=== PATIENT | female | born 1980 | race Caucasian/White ===

== ENCOUNTER 2022-07-03 11:34 | Observation (INO) | payer BC ==
[2022-07-03 12:21] LABS: Absolute Lymphocytes (CBC) 2.2 K/uL (0.7-4.9); Hematocrit 41.2 % (36.0-45.0); Lymphocytes % 20.8 % (15.3-44.8); MCV 95.2 fL (80-100); MPV 8.6 fL (7.6-11.3); RBC Red Blood Cell Count 4.33 M/uL (3.86-4.86)
[2022-07-03 12:21] LABS: Urine Blood Negative (Negative); Urine Glucose Negative (Negative); Urine Protein Negative (Negative); Urine Specific Gravity <=1.005 (1.005-1.030); Urine pH 6.5 (5.0-7.0)
[2022-07-03 13:03] LABS: Albumin 3.6 g/dL (3.4-5.0); Bilirubin Total 0.8 mg/dL (0.2-1.0); Potassium 3.4 mmol/L (3.5-5.1)
[2022-07-03 14:03] LABS: Blood Morphology Comment NOT SEEN (NOT SEEN); Platelet Estimate ADEQ; White Blood Cell Scan OK (OK)
--- NOTE | 2022-07-03 14:40 | RAD REPORT ---
EXAM DESCRIPTION: CT - Abdomen Pelvis W Contrast - 07/03/2022 1:29 pm CLINICAL HISTORY: ABD PAIN COMPARISON: No comparisons TECHNIQUE: Thin cut axial CT imaging of the abdomen and pelvis was performed following intravenous a dministration of 95 Isovue 300. Multiplanar reformats were generated and reviewed. All CT scans are performed using dose optimization technique as appropriate and may include automated exposure control or mA/KV adjustment according to patient size. FINDINGS: No suspicious findings in the lung bases. The liver, spleen, and pancreas show no suspicious findings. A small splenule is incidentally noted. Gallbladder and biliary tree are also without suspicious finding. Symmetric renal function is seen with no hydronephrosis or suspicious renal mass. No dilated bowel loops. Wall thickening and adjacent mild fat stranding along the cecal bulb. The tip of the appendix is normal in appearance (axial image 54/89), however the inflammatory changes may in volve the retrocecal base of the appendix. No appreciable fluid collections. No free air, free fluid or inflammatory stranding. No intra-abdominal mass or bulky lymphadenopathy. The urinary bladder is s uboptimally distended, which limits evaluation, without significant finding. Small midline supraumbilical ventral hernia containing fat, measuring 3.6 centimeter in greatest axia l dimension. No suspicious bony findings. IMPRESSION: Inflammatory changes and wall thickening along the cecal bulb, could reflect colitis. Th e inflammation may be involving the base of the appendix, although paucity of fat in the region limit s evaluation. The tip of the appendix appears to be within normal limits. Small midline supraumbilical ventral fat containing hernia The findings were communicated to Brian Shah on 07/03/2022 at 14:34 hours.
--- NOTE | 2022-07-03 15:06 | EDPHYS ---
Physician Documentation [facility] Name: Monserrat Lewis Age: 41 yrs Sex: Female : 1980 Arrival Date: 07/03/2022 Time: 11:36 Bed 20 Private MD: ED Physician Jesus Hawkins HPI: 07/03 11:49 This 41 yrs old Female presents to ER via Unassigned with complaints of Abdominal Pain ms3 - RLQ. 11:49 41-year-old female with past medical history of hypothyroidism presents for right lower ms3 quadrant abdominal pain that began yesterday afternoon around lunch. Patient states pain is currently 2/10 and located in her right lower quadrant. Patient does note a decreased appetite. Patient took simethicone without relief. Patient states her last menstrual period was June 26, 2022. Patient is status post bilateral tubal ligation.. 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 - Social history:: Smoking status: Patient denies any tobacco usage or history of. ROS: 11:50 Constitutional: Negative for fever, and chills. ENT: Negative for injury, pain, and ms3 discharge, Neck: Negative for injury, pain, and swelling, Cardiovascular: Negative for chest pain, and palpitations. Respiratory: Negative for shortness of breath, cough, wheezing, and pleuritic chest pain. 11:50 Skin: Negative for injury, rash, and discoloration. 11:50 Abdomen/GI: Positive for abdominal pain. 11:50 All other systems are negative. Exam: 11:50 Constitutional: This is a well developed, well nourished patient who is awake, alert, ms3 and in no acute distress. Head/Face: Normocephalic, atraumatic. Eyes: Pupils equal round and reactive to light, extra-ocular motions intact. Lids and lashes normal. Conjunctiva and sclera are non-icteric and not injected. Periorbital areas with no swelling, redness, or edema. Neck: Trachea midline, no cervical lymphadenopathy. Supple, full range of motion without nuchal rigidity, or vertebral point tenderness. No Meningismus. Chest/axilla: Normal chest wall appearance and motion. Nontender with no deformity. Cardiovascular: Regular rate and rhythm with a normal S1 and S2. No gallops, murmurs, or rubs. Normal PMI, no JVD. No pulse deficits. Respiratory: Lungs have equal breath sounds bilaterally, clear to auscultation and percussion. No rales, rhonchi or wheezes noted. No increased work of breathing, no retractions or nasal flaring. 11:50 Abdomen/GI: Inspection: abdomen appears normal, Bowel sounds: normal, Palpation: moderate abdominal tenderness, in the right lower quadrant. Vital Signs: 11:49 BP 131 / 86; Pulse 93; Resp 16; Temp 98.4; Pulse Ox 98% on R/A; Weight 71.21 kg; Height jh5 5 ft. 7 in. (170.18 cm); Pain 3/10; 14:11 BP 144 / 96; Pulse 88; Resp 16; Pulse Ox 100% on R/A; sg5 15:56 BP 154 / 94; Pulse 93; Resp 16; Temp 98.4(O); Pulse Ox 100% on R/A; db 16:00 BP 151 / 96; Pulse 91; Resp 16; Pulse Ox 100% ; db 18:00 BP 149 / 95; Pulse 89; Resp 18; Pulse Ox 100% on R/A; db 11:49 Body Mass Index 24.59 (71.21 kg, 170.18 cm) jh5 MDM: 11:47 Patient medically screened. ms3 11:50 Differential diagnosis: appendicitis, non-specific abd pain, Ectopic vs ms3 ovarian cyst. 16:30 Data reviewed: vital signs, nurses notes, lab test result(s), radiologic studies, CT ms3 scan. Consideration of Admission/Observation Patient was admitted/placed on observation. Management of patient was discussed with the following: Hospitalist: Dr Corbett. Display Card Writer: Dr Durán. I considered the following discharge prescriptions or medication management in the emergency department Medications were administered in the Emergency Department. See MAR. Independent interpretation of the following test(s) in the Emergency Department. Discussion of test interpretation with radiology: I had a discussion with radiology regarding a test interpretation. CT scan discussed. Cecal inflammation, possible appendicitis. Counseling: I had a detailed discussion with the patient and/or guardian regarding: the historical points, exam findings, and any diagnostic results supporting the discharge/admit diagnosis, lab results, radiology results, the need for further work-up and treatment in the hospital. ED course: Discussed with patient need for observation. She understands agrees to plan. All questions were answered.. 07/03 11:48 Order name: CBC with Diff md3 07/03 11:48 Order name: CMP md3 07/03 11:48 Order name: Lipase md3 07/03 12:18 Order name: CBC with Automated Diff; Complete Time: 14:14 [facility] 07/03 12:18 Order name: Comprehensive Metabolic Panel; Complete Time: 13:12 [facility] 07/03 12:18 Order name: Lipase; Complete Time: 13:12 [facility] 07/03 12:21 Order name: Urine Dipstick-Ancillary; Complete Time: 12:32 [facility] 07/03 14:04 Order name: CBC Smear Scan; Complete Time: 14:14 [facility] 07/03 15:26 Order name: SARS RAPID; Complete Time: 16:29 07/03 18:42 Order name: Magnesium 07/03 18:42 Order name: Phosphorus [facility] 07/03 11:48 Order name: CT Abd/Pelvis - IV Contrast Only md3 07/03 11:48 Order name: IV Saline Lock; Complete Time: 12:22 md3 07/03 11:48 Order name: Labs collected and sent; Complete Time: 12:22 md3 07/03 11:48 Order name: Urine Test (obtain specimen); Complete Time: 12:22 [facility] 07/03 12:18 Order name: Abdomen ; Complete Time: 14:58 [facility] 07/03 12:27 Order name: Labs - recollect needed; Complete Time: 12:32 07/03 18:42 Order name: Basic Metabolic Panel [facility] 07/03 18:42 Order name: Basic Metabolic Panel [facility] 07/03 18:49 Order name: NPO [facility] Administered Medications: 15:40 Drug: Flagyl (metroNIDAZOLE) 500 mg Volume: 100 ml; Route: IVPB; Rate: 200 ml/hr; db Infused Over: 30 mins; Site: left antecubital; 16:10 Follow up: Response: No adverse reaction; IV Status: Completed infusion; IV Intake: db 100ml 15:40 Drug: NS 0.9% 1000 ml Route: IV; Rate: 125 ml/hr; Site: left antecubital; db 18:08 Follow up: Response: No adverse reaction; IV Status: Infusion continued upon admission db 16:10 Drug: cefOXitin 1 grams Route: IVPB; Infused Over: 30 mins; Site: left antecubital; db 17:00 Follow up: Response: No adverse reaction; IV Status: Completed infusion; IV Intake: 50mldb Disposition Summary: 07/03/22 15:05 Hospitalization Ordered Hospitalization Status: Observation ms3 Provider: Riccardo Corbett ms3 Location: Telemetry/MedSurg (observation) ms3 Condition: Stable ms3 Problem: new ms3 Symptoms: are unchanged ms3 Bed/Room Type: Standard ms3 Room Assignment: 206(07/03/22 17:28) dw Diagnosis - Lower abdominal pain, unspecified ms3 - Colitis ms3 Forms: - Medication Reconciliation Form ms3 - SBAR form ms3 Signatures: Dispatcher [employer] Concepcion Hernandez RN Margaret Roberto RN Jesus Ramos DO DO ms3 Laney Monk RN RN jh5 Tanya Zambrano RN RN db Corrections: (The following items were deleted from the chart) 17:28 15:05 ms3 dw 18:48 18:42 Clear Liquid ordered. EDMS EDMS 18:48 18:42 Creatine Phosphokinase ordered. EDMS EDMS 18:49 18:42 T4 Free ordered. EDMS EDMS 18:49 18:42 Thyroid Stimulating Hormone ordered. EDMS EDMS 18:49 18:42 Urinalysis ordered. EDMS EDMS 18:49 18:42 CBC with Automated Diff ordered. EDMS EDMS 18:49 18:42 CBC with Automated Diff ordered. EDMS EDMS
--- NOTE | 2022-07-03 15:06 | ER ---
Nurse's Notes [facility] Name: Monserrat Lewis Age: 41 yrs Sex: Female : 1980 Arrival Date: 07/03/2022 Time: 11:36 Bed 20 Private MD: Diagnosis: Lower abdominal pain, unspecified;Colitis Presentation: 07/03 11:49 Chief complaint: Patient states: Patient reports right lower quadrant abdominal pain [facility] 310 with body aches and chills. Coronavirus screen: Vaccine status: Patient reports receiving the 2nd dose of the covid vaccine. Ebola Screen: No symptoms or risks identified at this time. Initial Sepsis Screen: Does the patient meet any 2 criteria? No. Patient's initial sepsis screen is negative. Does the patient have a suspected source of infection? No. Patient's initial sepsis screen is negative. Risk Assessment: Do you want to hurt yourself or someone else? Patient reports no desire to harm self or others. Onset of symptoms was July 03, 2022. 11:49 Method Of Arrival: Ambulatory [facility] 11:49 Acuity: GM 3 [facility] Triage Assessment: 11:51 General: Appears comfortable, Behavior is calm, cooperative, appropriate for age. Pain: [facility] Complains of pain in abdomen Pain currently is 3 out of 10 on a pain scale. Cardiovascular: No deficits noted. Respiratory: No deficits noted. GI: Abdomen is flat, non-distended, Reports lower abdominal pain. 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 - Social history:: Smoking status: Patient denies any tobacco usage or history of. Screenin:12 [facility] ED Fall Risk Assessment (Adult) History of falling in the last 3 months, sg5 including since admission No falls in past 3 months (0 pts). Abuse screen: Denies threats or abuse. Nutritional screening: No deficits noted. Tuberculosis screening: No symptoms or risk factors identified. Assessment: 12:00 General: Appears comfortable, Behavior is calm, cooperative, appropriate for age. Pain: sg5 Complains of pain in abdomen. Cardiovascular: No deficits noted. Respiratory: No deficits noted. GI: Bowel sounds present X 4 quads. Abd is soft X 4 quads Abd is non tender. 15:55 Reassessment: Patient appears in no apparent distress at this time. Patient and/or db family updated on plan of care and expected duration. Pain level reassessed. Patient is alert, oriented x 3, equal unlabored respirations, skin warm/dry/pink. patient roomed in 20 from the hallway. Patient complaining of abdominal pain since last night and headache. Neuro: Level of Consciousness is awake, alert, obeys commands, Oriented to person, place, time, situation, Reports headache. 16:38 Reassessment: Patient appears in no apparent distress at this time. Patient and/or db family updated on plan of care and expected duration. Pain level reassessed. Patient is alert, oriented x 3, equal unlabored respirations, skin warm/dry/pink. 18:06 Reassessment: CALLED FLOOR TO GIVE REPORT. NURSE STATES WILL CALL BACK. db 18:07 Reassessment: Patient appears in no apparent distress at this time. Patient and/or db family updated on plan of care and expected duration. Pain level reassessed. Patient is alert, oriented x 3, equal unlabored respirations, skin warm/dry/pink. Vital Signs: 11:49 BP 131 / 86; Pulse 93; Resp 16; Temp 98.4; Pulse Ox 98% on R/A; Weight 71.21 kg; Height jh5 5 ft. 7 in. (170.18 cm); Pain 3/10; 14:11 BP 144 / 96; Pulse 88; Resp 16; Pulse Ox 100% on R/A; sg5 15:56 BP 154 / 94; Pulse 93; Resp 16; Temp 98.4(O); Pulse Ox 100% on R/A; db 16:00 BP 151 / 96; Pulse 91; Resp 16; Pulse Ox 100% ; db 18:00 BP 149 / 95; Pulse 89; Resp 18; Pulse Ox 100% on R/A; db 11:49 Body Mass Index 24.59 (71.21 kg, 170.18 cm) 5 ED Course: 11:36 Patient arrived in ED. am2 11:36 Jesus Hawkins DO is Attending Physician. ms3 11:51 Triage completed. jh5 11:51 Arm band placed on right wrist. jh5 12:22 CBC with Automated Diff Sent. ld1 12:22 Comprehensive Metabolic Panel Sent. ld1 12:22 CBC with Diff Sent. ld1 12:22 CMP Sent. ld1 12:22 Lipase Sent. ld1 12:23 Inserted saline lock: 20 gauge in left antecubital area, using aseptic technique. bc6 13:31 Abdomen In Process Unspecified. EDMS 14:12 Patient has correct armband on for positive identification. Bed in low position. 5 15:04 Riccardo Corbett MD is Hospitalizing Provider. ms3 15:54 Tanya Zambrano RN is Primary Nurse. db 16:38 Pulse ox on. NIBP on. Warm blanket given. db 18:06 No provider procedures requiring assistance completed. Patient admitted, IV remains in db place. 18:23 Report given to VINEET Brown on 2nd floor for room 206. db Administered Medications: 15:40 Drug: Flagyl (metroNIDAZOLE) 500 mg Volume: 100 ml; Route: IVPB; Rate: 200 ml/hr; db Infused Over: 30 mins; Site: left antecubital; 16:10 Follow up: Response: No adverse reaction; IV Status: Completed infusion; IV Intake: db 100ml 15:40 Drug: NS 0.9% 1000 ml Route: IV; Rate: 125 ml/hr; Site: left antecubital; db 18:08 Follow up: Response: No adverse reaction; IV Status: Infusion continued upon admission db 16:10 Drug: cefOXitin 1 grams Route: IVPB; Infused Over: 30 mins; Site: left antecubital; db 17:00 Follow up: Response: No adverse reaction; IV Status: Completed infusion; IV Intake: 50mldb Medication: 18:06 VIS not applicable for this client. db Intake: 16:10 IV: 100ml; Total: 100ml. db 17:00 IV: 50ml; Total: 150ml. db Outcome: 15:05 Decision to Hospitalize by Provider. ms3 18:05 Admitted to Med/surg room 206. db 18:05 Condition: stable 18:05 Instructed on the need for admit. 18:56 Patient left the ED. db Signatures: Dispatcher [employer] EDMargaret Gomez am2 Jesus Hawkins DO DO ms3 Danika Gates, RN RN ld1 Laney Monk RN RN jh5 Tanya Zambrano RN RN db Marie Hernandez 6 Cammy Hennessy RN RN sg5
[2022-07-03] MEDS ORDERED: METRONIDAZOLE 500mg IVPB 500 MG/100 ML BAG IV ONE (15:38)
[2022-07-03] MEDS ORDERED: NA CHLORIDE 0.9% 50 ML ONE (15:38)
[2022-07-03] MEDS ORDERED: CEFOXITIN SODIUM 1 GM/VIAL ONE (15:38)
[2022-07-03] MEDS ORDERED: NA CHLORIDE 0.9% 1,000 ML ONE (15:39)
[2022-07-03 16:10] LABS: SARS-CoV-2 Antigen Rapid Res Negative (Negative)
[2022-07-03] MEDS ORDERED: ACETAMINOPHEN 325 MG TABLET PO PRN (16:58)
[2022-07-03] MEDS ORDERED: POTASSIUM CL SA 10 MEQ TAB PO ONE (16:58)
[2022-07-03] MEDS ORDERED: ONDANSETRON 4 MG/2 ML VIAL IV PRN (17:00)
[2022-07-03] MEDS ORDERED: LABETALOL 20 MG/4ML SYRINGE IV PRN (17:02)
--- NOTE | 2022-07-03 17:03 | P.HP ---
Certification for Inpatient Patient admitted to: Observation With expected LOS: <2 Midnights Patient will require the following post-hospital care: None Practitioner: I am a practitioner with admitting privileges, knowledge of patient current condition, hospital course, and medical plan of care. Services: Services provided to patient in accordance with Admission requirements found in Title 42 Section 412.3 of the Code of Federal Regulations Patient History Date of Service: 07/03/22 Reason for admission: Abdominal pain History of Present Illness: Patient is a 41-year-old with a past medical history significant for hypothyroidism who presents with complaint of right lower quadrant pain onset yesterday. Patient rated pain as 8/10 in severity and described pain as sharp in quality. Patient reported associated signs and symptoms of nausea, diaphoresis, chills, headache, generalized body pains. Patient denies any other signs and symptoms. Symptoms are aggravated or relieved by nothing. Patient decided to present to the hospital due to worsening symptoms. Allergies Sulfa (Sulfonamide Antibiotics) Allergy (Verified 07/03/22 18:26) Hives/Rash - Past Medical/Surgical History -: Hypothyroidism -: Tubal ligation. -: -: Rhinoplasty - Family History Father -: Cancer Mother -: Diabetes - Social History Smoking Status: Current every day smoker Counseled patient to stop smoking for: less than 10 minutes Smoking therapy provided: Yes Patient receptive to therapy: Yes Alcohol use: Yes CD- Drugs: No Caffeine use: Yes Place of Residence: Home Review of Systems General: Chills, Sweats, Other (Generalized body pains. ) Eyes: Unremarkable ENT: Unremarkable Respiratory: Unremarkable Cardiovascular: Unremarkable Gastrointestinal: Nausea Genitourinary: Unremarkable Musculoskeletal: Unremarkable Integumentary: Unremarkable Neurological: Other (SINHA) Lymphatics: Unremarkable Physical Examination - Physical Exam General: Alert, In no apparent distress, Oriented x3, Cooperative HEENT: Atraumatic, PERRLA, Mucous membr. moist/pink, EOMI, Sclerae nonicteric Neck: Supple, 2+ carotid pulse no bruit, No LAD, Without JVD or thyroid abnormality Respiratory: Clear to auscultation bilaterally, Normal air movement Cardiovascular: No edema, Regular rate/rhythm, Normal S1 S2 Capillary refill: <2 Seconds Gastrointestinal: Hypoactive, Tenderness Musculoskeletal: No clubbing, No swelling, No erythema Integumentary: No rashes, No breakdown, No significant lesion Neurological: Normal speech, Normal tone, Normal affect Lymphatics: No axilla or inguinal lymphadenopathy - Studies Laboratory Data (last 24 hrs) 07/03/22 12:30: Sodium 134 L, Potassium 3.4 L, BUN 6 L, Creatinine 0.51 L, Glucose 97, Total Bilirubin 0.8, AST 14 L, ALT 23, Alkaline Phosphatase 83, Lipase 20 07/03/22 12:10: WBC 10.50, Hgb 14.1, Hct 41.2, Plt Count 216 Assessment and Plan - Plan --Colitis. Patient placed on antibiotics. There was initial concern for appendicitis on CT scan. Surgery was consulted. Surgeon believes patient does not have appendicitis and recommended that Gastroenterology be consulted. Patient placed on antibiotics. We will await further recommendation from consultants. --Abdominal pain. We will manage pain on current pain medication regimen. --Hypokalemia. Replete as needed. --Hypothyroidism. Continue home medication. --Nicotine dependence. Patient counseled on tobacco cessation. Refuses nicotine patch. --DVT prophylaxis with Lovenox subQ. Discharge Plan: Home Plan to discharge in: 48 Hours - Advance Directives Does patient have a Living Will: No Does patient have a Durable POA for Healthcare: No - Code Status/Comfort Care Code Status Assessed: Yes Physician Review: Patient Assessed, Agree with Above Assessment and Plan Critical Care: No
[2022-07-03] MEDS ORDERED: MORPHINE 4 MG/ML SYR IV PRN (17:18)
[2022-07-03] MEDS: METRONIDAZOLE 500mg IVPB 500 MG/100 ML BAG IV SCH (17:30)
[2022-07-03] MEDS: ENOXAPARIN 40 MG/0.4 ML SQ SCH (18:00)
[2022-07-03] MEDS ORDERED: MORPHINE 2 MG/ML SYR IV PRN (18:32)
[2022-07-03] MEDS: CIPROFLOXACIN 400mg IV 400 MG/200 ML BAG IV SCH (21:00)
[2022-07-03 21:37] LABS: Magnesium 2.1 mg/dL (1.6-2.4); Phosphorus 3.1 mg/dL (2.5-4.9)
[2022-07-03 22:26] VITALS: BMI 24.7
[2022-07-04] MEDS: METRONIDAZOLE 500mg IVPB 500 MG/100 ML BAG IV SCH ×3 (00:32→17:06)
[2022-07-04] MEDS: Ringers Lactate 1,000 ML IV SCH ×2 (02:24→08:47)
[2022-07-04 03:56] LABS: Potassium 3.2 mmol/L (3.5-5.1)
[2022-07-04] MEDS ORDERED: POTASSIUM CL 40 MEQ in NA CHLORIDE 0.9% 500 ML IV SCH (06:00)
[2022-07-04] MEDS: KCL 20 MEQ/100 mL IVPB 20 MEQ/100 ML BAG IV SCH ×2 (06:19→08:38)
[2022-07-04] MEDS: ENOXAPARIN 40 MG/0.4 ML SQ SCH (08:38)
[2022-07-04] MEDS: CIPROFLOXACIN 400mg IV 400 MG/200 ML BAG IV SCH (08:40)
[2022-07-04 08:50] VITALS: O2SAT 99
--- NOTE | 2022-07-04 11:59 | CON ---
Reason For Consultation: Abdominal pain. History Of Present Illness: The patient is a 41-year-old female, comes in with acute onset of right lower quadrant pain yesterday. She had nausea, diaphoresis, chills, headaches. No diarrhea. No blo od in her stool. No dysuria or hematuria. No sore throat, runny nose, cough. She did have headache s. No chest pain. No fever, but she did have chills. Review of Systems: Otherwise unremarkable. Past Medical History: Hypothyroidism. Past Surgical History: Tubal ligation, , rhinoplasty. Allergies: INCLUDE SULFA. Social History: The patient does smoke and occasionally drinks alcohol. Has been counseled. Family History: Significant for cancer and diabetes. Cancer is unknown type. Physical Examination: Vital Signs: Currently are stable. She is afebrile. General: She is awake, alert, and oriented x3. Head and Neck: No evidence of icterus. Cranial nerves 2 through 12 are grossly within normal limits . No neck masses. No JVD. Throat clear. Neck is supple. Chest: Clear. Heart: S1 and S2. Abdomen: Soft, nondistended. Positive bowel sounds. Positive right lower quadrant tenderness. No rebound, rigidity, or guarding. Extremities: Adequately perfused. Nontender. Neuro: Nonfocal. Laboratory Data: CT of the abdomen and pelvis reviewed. Essentially, it shows inflammatory changes, wall thickening along the cecal bulb, could be colitis. The inflammation may involve base of the ap pendix, although the paucity of fat in this region limits evaluation. Tip of the appendix appears to be within normal limits. A small midline supraumbilical ventral fat containing hernia. Assessment: A 41-year-old female with colitis. Recommendation: Admit, n.p.o., IV fluid, IV antibiotics, GI consultation for interval colonoscopy, s erial abdominal exam. I do not think the patient has acute appendicitis. We would recommend IV anti biotics until the patient's symptoms improved and she can be discharged home on oral antibiotics with followup with GI for colonoscopy. We will start her on sips of clear liquids today and see how she does. There is no need for any surgical intervention at this time. Plan of care discussed in detail with the patient and family. REID/OMER Voice ID: [id number] Report ID: [id number]
[2022-07-04 16:03] VITALS: BP 182/90; TEMP 98.8
--- NOTE | 2022-07-04 17:21 | P.DS ---
Admission Date: 07/03/22 Discharge Date: 07/04/22 Disposition: ROUTINE DISCHARGE Discharge Condition: GOOD Reason for Admission: Abdominal pain Consultations: 1. General Surgery 2. Gastroenterology Hospital Course: DIAGNOSES: # Acute Cecal Colitis # Small Splenic Nodule # Small Supraumbilical Ventral Hernia HOSPITAL COURSE: Ms. Monserrat Lewis is a 41 year old female with a past medical history significant for hypothyroidism who was admitted to the [facility] on 07/03/2022 for abdominal pain. She was admitted to the Medicine service. Upon further evaluation, a CT abdomen/pelvis revealed, "inflammatory changes and wall thickening along the cecal bulb, could reflect colitis. The inflammation may be involving the base of the appendix, although paucity of fat in the region limits evaluation. The tip of the appendix appears to be within normal limits. Small midline supraumbilical ventral fat containing hernia." General Surgery was consulted and she was evaluated by Dr. Durán. He evaluated her and did not believe that her symptoms were secondary to acute appendicitis. From his standpoint, no acute surgical intervention was required, and he recommended a Gastroenterology consultation. Gastroenterology was consulted and she was evaluated by Dr. Peralta. He has cleared her for discharge with 2 weeks of ciprofloxacin and metronidazole. He states that he will schedule her for a colonoscopy in 6 weeks at his clinic. Over the course of her hospitalization, her diet was advanced, and she stated that she felt significantly better. She was able to ambulate without any issues. She requested to be discharged home. This was discussed with Dr. Durán and Dr. Peralta, who were in agreement with her discharge home. In regards to the incidental findings (the splenule and the ventral hernia), I updated her on these findings. I advised that she schedule a follow-up with her PCP to monitor the splenule and with General Surgery for the ventral hernia. On 07/04/2022, she was seen on rounds and deemed medically stable for discharge. She was discharged with instructions to schedule follow-up appointments with her PCP (Dr. Boyd), with Gastroenterology (Dr. Peralta), and with General Surgery (Dr. Durán). She was provided prescriptions for ciprofloxacin and metronidazole. She was given the opportunity to ask questions and reported no further questions. Furthermore, all questions were answered to the best of my ability. A copy of this discharge summary will be sent to the above providers to facilitate continuity of care. Today, I personally spent 25 minutes on her case, of which greater than 50% of the time was spent in patient education, counseling, and coordination of care as described above. Vital Signs/Physical Exam: Temp Pulse Resp BP Pulse Ox 98.8 F 75 14 182/90 H 99 07/04/22 16:00 07/04/22 16:00 07/04/22 16:00 07/04/22 16:00 07/04/22 16:00 General: Alert, In no apparent distress, Oriented x3 HEENT: Atraumatic, Mucous membr. moist/pink, EOMI, Sclerae nonicteric Neck: JVD not distended Respiratory: Clear to auscultation bilaterally, Normal air movement Cardiovascular: No edema, Regular rate/rhythm, Normal S1 S2, No gallops, No r ubs, No murmurs Capillary refill: <2 Seconds Gastrointestinal: Normal bowel sounds, Soft and benign, Non-distended, No tenderness, No rebound, No guarding Musculoskeletal: No clubbing Integumentary: No rashes Neurological: Normal speech, Normal affect Laboratory Data at Discharge: WBC 10.50 K/uL (4.3-10.9) 07/03/22 12:10 Hgb 14.1 g/dL (12.0-15.0) 07/03/22 12:10 Hct 41.2 % (36.0-45.0) 07/03/22 12:10 Plt Count 216 K/uL (152-406) 07/03/22 12:10 Sodium 138 mmol/L (136-145) 07/04/22 02:41 Potassium 3.2 mmol/L (3.5-5.1) L 07/04/22 02:41 BUN 5 mg/dL (7-18) L 07/04/22 02:41 Creatinine 0.43 mg/dL (0.55-1.02) L 07/04/22 02:41 Glucose 82 mg/dL (74-106) 07/04/22 02:41 Phosphorus 3.1 mg/dL (2.5-4.9) 07/03/22 21:07 Magnesium 2.1 mg/dL (1.6-2.4) 07/03/22 21:07 Total Bilirubin 0.8 mg/dL (0.2-1.0) 07/03/22 12:30 AST 14 U/L (15-37) L 07/03/22 12:30 ALT 23 U/L (13-56) 07/03/22 12:30 Alkaline Phosphatase 83 U/L (45-117) 07/03/22 12:30 Lipase 20 U/L (13-75) 07/03/22 12:30 Home Medications: Ciprofloxacin HCl [Cipro] 500 mg PO BID 14 Days #28 tab 07/04/22 Levothyroxine Sodium [Levothyroxine] 175 mcg PO DAILY 07/04/22 Liothyronine Sodium [Cytomel] 1 tab PO DAILY 07/04/22 metroNIDAZOLE [Metronidazole] 500 mg PO Q8H 14 Days #42 tab 07/04/22 New Medications: Ciprofloxacin HCl [Cipro] 500 mg PO BID 14 Days #28 tab metroNIDAZOLE [Metronidazole] 500 mg PO Q8H 14 Days #42 tab Physician Discharge Instructions: 1. Please call and schedule a follow-up appointment with your PCP (Dr. Boyd) in 3-5 days - Please have him follow-up the spot on your spleen - Your blood pressure was elevated here, but this can be seen with your abdominal pain - Please monitor your blood pressure at home and keep a journal. Bring this journal to your visit with Dr. Boyd, he may want to start you on medication your blood pressure remains elevated. 2. Please call and schedule a follow-up appointment with Gastroenterology (Dr. Peralta) in 3-5 days - Please have him schedule you for a colonoscopy in 4-6 weeks 3. Please call and schedule a follow-up appointment with General Surgery (Dr. Durán) for your abdominal hernia Diet: Regular Activity: Ad saeid Followup: Michael Durán MD [ACTIVE - CAN ADMIT] - Moise Peralta MD [ASSOCIATE-ACTIVE - CAN ADMIT] - Ismael Boyd MD [Primary Care Provider] - 2-3 Days Time spent managing pt's care (in minutes): 25
== END 2022-07-04 18:00 | disposition home or self-care (01) ==
LOC: ER 11:34 → INTOOBSV 16:52 → 2ND 16:52
PROVIDERS: ADMIT Internal Medicine; ATTEND Internal Medicine
DX: K52.9 Noninfective gastroenteritis and colitis, unspecified (principal); E03.9 Hypothyroidism, unspecified; R11.0 Nausea; R61 Generalized hyperhidrosis; R51.9 Headache, unspecified; K43.9 Ventral hernia without obstruction or gangrene; F17.210 Nicotine dependence, cigarettes, uncomplicated; E87.6 Hypokalemia; Z71.6 Tobacco abuse counseling; Z88.2 Allergy status to sulfonamides; Z20.822 Contact with and (suspected) exposure to COVID-19
CPT/HCPCS: 96365; 96367; 96361; 85025; 80048; 36415; 83735; 84100; 81003; 83690; 80053; 74177; 99285; 87811; Q9967; J3480 ×2; J1650; J2270; J7120 ×2; J7030; J0694; J0744 ×2; 86021; 86036; 86671; G0378; J7040